=== PATIENT | male | born 1935 | race Caucasian/White ===

== ENCOUNTER 2017-03-01 12:58 | Inpatient (IN) | payer MEDICARE, BC ==
[2017-02-27 10:06] LABS: BASOPHILS 1.1 %; BASOPHILS ABSOLUTE 0.09 10/3/uL (0.0-0.16); EOSINOPHILS 3.4 %; EOSINOPHILS ABSOLUTE 0.27 10/3/uL (0.0-0.53); HEMATOCRIT 27.8 % (40.0-51.0); HEMOGLOBIN 8.7 g/dL (13.6-17.8); IMMATURE GRANULOCYTES 0.1 %; IMMATURE GRANULOCYTES ABSOLUTE 0.01 10/3/uL (0.0-0.11); LYMPHOCYTES 9.1 %; LYMPHOCYTES ABSOLUTE 0.72 10/3/uL (0.67-4.30); MEAN CORPUS HGB CONC 31.3 g/dL (32.0-36.0); MEAN CORPUSCULAR HEMOGLOB 28.8 pg (26.0-34.0); MEAN CORPUSCULAR VOLUME 92.1 fL (80-100); MEAN PLATELET VOLUME 9.1 fL (9.2-13.0); MONOCYTES 8.6 %; MONOCYTES ABSOLUTE 0.68 10/3/uL (0.21-1.20); NEUTROPHILS 77.7 %; PLATELET COUNT 235 10/3/uL (150-400); RBC DISTRIBUTION WIDTH 15.7 % (12.0-16.0); RED CELL COUNT 3.02 10/6/uL (4.7-6.1); WHITE BLOOD CELLS 7.9 10/3/uL (4.5-10.5)
[2017-02-27 10:07] LABS: MANUAL DIFF NO %
[~2017-03-01] VITALS: Ht 190.5 cm; Wt 98.5 kg
--- NOTE | ~2017-03-01 | HP ---
History And Physical [id number] [place]. [address] NAME: JAMES RO : 34 STATUS : ADM IN PAT#: [id number] AGE: 81 ADM/REG DATE : 03/01/17 MR#: [id number] REPORT SERV DATE: 03/03/17 DICTATED BY: TOM SUTTON DATE: 03/01/17 REPORT STATUS : Draft TRANSCRIBED BY: MODL DATE: 03/01/17 DATE OF ADMISSION: 03/01/2017 CHIEF COMPLAINT: Shortness of breath and fatigue. HISTORY OF PRESENT ILLNESS: This is an 81-year-old gentleman with history of coronary artery disease, systolic congestive heart failure with ejection fraction of 30%, hypertension, diabetes, atrial fibrillation, chronic kidney disease, who is on anticoagulation with Eliquis, presenting with shortness of breath and fatigue. The patient was actually here back in December with blood loss anemia secondary to GI bleed. At that time, patient required two units of packed red blood cells, and patient was eventually discharged home with hemoglobin level of 9.8. Patient since then has been resumed on his Eliquis. The patient also has had close followup with Dr. Méndez as an outpatient, and his hemoglobin was monitored frequently. The patient reports that when he was first discharged home, he was feeling great and he was able to do a lot of daily chores without difficulty but overtime, the patient has grown weaker and weaker and developed worsening dyspnea on exertion. Rather recently, the patient has had difficult time walking out to the mailbox and especially this morning, he was out of breath after walking just ten feet to his bathroom and back. The patient has been monitoring his bowel movements, and he has not noted any gross bleeding. However, the patient's outpatient hemoglobin has been trickling down from 9.8 down to 9 and most recently 8.7. Dr. Méndez was concerned and recommended the patient to go to the ER for further evaluation and care. In the ER, the patient was found to be afebrile and hemodynamically stable. Initial lab evaluation was actually all very benign. The patient's hemoglobin was 9.0 which is actually better than 8.7 that was performed a couple of days ago. Internal Medicine consultation was requested for admission of the patient for further evaluation and care. In reviewing pertinent past medical history, the patient was asked if he has gained some weight or has noticed any swelling, and the patient actually reported yes. The patient's chest x-ray also looks like he has quite a bit of vascular congestion. The patient reports having been adherent to his medical therapy and diet. REVIEW OF SYSTEMS: Patient denies any fevers or chills. Also, 14-point review of systems reviewed and negative other than mentioned above. MEDICATIONS: The patient's home medication list is still pending at this time. PAST MEDICAL HISTORY: 1. Coronary artery disease with CABG. 2. Systolic congestive heart failure with ejection fraction of 30%. 3. History of V-tach, status post AICD implantation. 4. Hypertension. 5. Diabetes type 2. 6. Chronic atrial fibrillation for which patient is on Eliquis. History And Physical [address] [address] NAME: JAMES RO : 34 STATUS : ADM IN [facility]#: [id number] AGE: 81 ADM/REG DATE : 03/01/17 MR#: [id number] REPORT SERV DATE: 03/03/17 DICTATED BY: TOM SUTTON DATE: 03/01/17 REPORT STATUS : Draft TRANSCRIBED BY: MAGI DATE: 03/01/17 7. Chronic kidney disease stage 3. 8. GERD. 9. History of C. difficile. PAST SURGICAL HISTORY: 1. CABG. 2. Pacemaker and AICD implantation. 3. Bilateral knee replacements. FAMILY HISTORY: Hypertension. SOCIAL HISTORY: The patient does not smoke, drink alcohol, or use any illicit drugs. The patient lives at home with his who is at bedside here in the ER. PHYSICAL EXAMINATION: VITAL SIGNS: Temperature 98.0, blood pressure 118/56, pulse 66, respiratory rate is 20, saturating 96% on room air. GENERAL: Patient is alert and oriented x3 with no focal neurologic deficits. Patient is awake, does not appear to be in acute distress, and he is cooperative. NECK: No JVD. No lymphadenopathy. Normal thyroid. CHEST: Midline sternotomy scar from the past. Otherwise, no tenderness to palpation. LUNGS: The patient has diminished breath sounds in the bilateral lung bases with some crackles. Otherwise, fairly normal respiratory effort on room air sitting up. CARDIOVASCULAR: Regular rate and rhythm with no murmurs, rubs, or gallops, and PMI is nondisplaced. ABDOMEN: Soft and nontender with active bowel sounds and no organomegaly. EXTREMITIES: The patient actually has diffuse anasarca and 3 to 4+ bilateral lower extremity edema into his thighs and hips. The patient otherwise has warm extremities with no calf tenderness. SKIN: Clean, dry, warm, and intact. LABORATORY DATA: Sodium is 142, potassium 4.0, chloride 109, BUN 28, creatinine 1.36, glucose 148, calcium 8.8. White blood cell count is 7.8, hemoglobin 9.0, platelets 253. INR is 1.7. LFTs within normal limits. BNP was 650.5. Urinalysis was negative. Chest x- ray is personally interpreted and shows vascular congestion with pleural effusions bilaterally. ASSESSMENT: This is an 81-year-old gentleman with history of systolic congestive heart failure presenting with a congestive heart failure exacerbation. 1. Systolic congestive heart failure exacerbation, baseline ejection fraction of 30%. 2. Anasarca. 3. Acute on chronic anemia, patient's hemoglobin is actually fairly stable, and I believe his symptoms are more from the congestive heart failure exacerbation than a symptomatic anemia. 4. Chronic atrial fibrillation, on Eliquis. 5. Chronic kidney disease, stage 3. 6. Hypertension. History And Physical [address] [address] NAME: JAMES RO : 34 STATUS : ADM IN [facility]#: [id number] AGE: 81 ADM/REG DATE : 03/01/17 MR#: [id number] REPORT SERV DATE: 03/03/17 DICTATED BY: TOM SUTTON DATE: 03/01/17 REPORT STATUS : Draft TRANSCRIBED BY: MODHazel DATE: 03/01/17 7. Diabetes type 2. 8. History of Clostridium difficile. 9. Gastroesophageal reflux disease. PLAN: My plan is to admit the patient as an inpatient under telemetry monitoring. The patient actually appears comfortable on room air. However, given the degree of anasarca, I feel the patient will need at least two full days of diuresis. The patient will be started on IV Lasix diuresis. Ins and outs as well as daily weights will be closely monitored. I will also closely monitor daily electrolytes and renal function as the patient is aggressively diuresed. I will also go ahead and check an echocardiogram. For the acute on chronic anemia, I will simply monitor his H and Hs. The patient was noted to have a Hemoccult-positive stool as an outpatient, and I will have a low threshold to ask Dr. Méndez to step in to help if the patient develops worsening anemia or any sort of gross GI bleeding. At that point in time, the patient's Eliquis will be also held. Otherwise, for the rest of stable past medical conditions including hypertension, diabetes, GERD, et al., I will continue home medications. Standard DVT prophylaxis. The patient is full code at this time. YSC/MODL Tom Sutton MD / [id number] CC: Chantel Vergara Dr.
--- NOTE | ~2017-03-01 | DS ---
Discharge Summary [address] [place]. [address] NAME: JAMES RO : 34 STATUS : DIS IN PAT#: [id number] AGE: 81 ADM/REG DATE : 03/01/17 MR#: [id number] REPORT SERV DATE: 03/07/17 DICTATED BY: JEFFERY ZHU DATE: 03/06/17 REPORT STATUS : Draft TRANSCRIBED BY: MODL DATE: 03/06/17 ADMISSION DATE: 03/01/2017 DISCHARGE DATE: 03/06/2017 DISCHARGE DIAGNOSES: 1. Acute on chronic systolic heart failure. 2. Ischemic cardiomyopathy with ejection fraction of 35%. 3. Anasarca. 4. Diabetes mellitus type 2 with complications. 5. Chronic atrial fibrillation. 6. Hypertension. 7. Chronic kidney disease, stage II to III. 8. Anemia. 9. History of coronary artery bypass graft with coronary artery disease. 10.History of recent gastrointestinal bleed. 11.History of ventricular tachycardia. 12.History of Clostridium difficile. 13.Gastroesophageal reflux disease. CONSULTATIONS: Cardiology, Dr. Warren. PROCEDURES AND IMAGIN. 03/01/2017, portable chest x-ray showed bibasilar atelectasis/consolidation, right greater than left with small bilateral pleural effusions, right greater than left. 2. Stable enlargement of cardiac silhouette with evidence of previous median sternotomy and AICD placement. HOSPITAL COURSE: Please see H and P dictated by Dr. Tom Sinha on 03/01/2017 for complete details regarding patient's admission. In brief, Dr. Sinha admitted the patient for shortness of breath and increase in fatigue. The patient had a previous admission in December with acute blood loss anemia secondary to GI bleed. The patient also has an extensive heart history. The patient's hemoglobin initially was 8.7, it has now increased to 9.4, and Dr. Méndez is aware and will be following up with the patient after discharge. On 03/04/2017, the patient was seen by Dr. Lorenzo for his acute on chronic heart failure. The patient has been extensively diuresed for his anasarca, and the patient's edema has decreased to 2+ pitting edema, bilateral mid singh. The patient has also had extensive teaching per the heart failure team and has been recommended for followup with home health for his CHF. The patient has diabetes mellitus type 2 with complications, and the patient's blood glucoses have remained stable during his admission. The patient has a history of chronic atrial fibrillation for which he is on apixaban and also has an AICD pacemaker. The patient will be following up with Dr. Warren on 03/20/2017. The patient's blood pressure has been under good control while he has been in the hospital and his lisinopril has been decreased by Dr. Warren. The patient has history CKD, stage II to III, which has progressively worsened with diuresis with current BUN of 43, creatinine of 1.81, and GFR of 39. The patient will be having followup labs in one week and seeing Dr. Bazan next week. The patient also has a history of possible vascular disease, and he will be seeing Dr. Bustamante today as a new patient Discharge Summary [address] [address] NAME: JAMES RO : 34 STATUS : DIS IN PAT#: [id number] AGE: 81 ADM/REG DATE : 03/01/17 MR#: [id number] REPORT SERV DATE: 03/07/17 DICTATED BY: JEFFERY ZHU DATE: 03/06/17 REPORT STATUS : Draft TRANSCRIBED BY: MAGI DATE: 03/06/17 on 03/12/2017. PHYSICAL EXAMINATION: VITAL SIGNS: Blood pressure is 114/57, O2 saturation is 98% on room air, temperature is 97.5, heart rate is 62, respirations are 18. HEENT: Head is atraumatic, normocephalic. Pupils are equal, round, reactive to light and accommodation. Sclerae are clear and nonicteric. NECK: Supple with no obvious thyromegaly or lymphadenopathy. Neck veins are flat and trachea is midline. CHEST: The patient has a pacemaker in left upper chest. LUNGS: Clear to auscultation with normal respiratory effort anteriorly and posteriorly. GI: Abdomen is soft and nontender with active bowel sounds in all four quadrants. No palpable organomegaly. Normal bowel habitus. EXTREMITIES: The patient has 2+ pitting edema to mid singh. Bilateral feet are warm and no cyanosis. The patient's toes are red and blanchable. MUSCULOSKELETAL: Moves all extremities x4. SKIN: Warm and dry with normal color and turgor. NEURO/PSYCH: The patient is alert and oriented x3, pleasant, cooperative. Cranial nerves 2 through 12 are grossly intact. The patient is eating well. DISCHARGE MEDICATIONS: Eliquis 2.5 mg twice daily; ascorbic acid 250 mg daily; aspirin 81 mg daily; atorvastatin 40 mg daily; Lasix 40 mg daily, start on 03/07/2017; vitamin D 1000 units daily; ferrous sulfate 325 mg twice daily; Uloric 40 mg daily; glipizide 10 mg with breakfast and supper; hydrocodone 5/325 mg tablets, one tablet at bedtime; Davenport 5/325 mg one table daily p.r.n.; specialty vitamins one tablet daily; Lopressor 25 mg p.o. twice daily, hold for systolic blood pressure less than or equal to 105 or heart rate less than or equal to 60; Protonix 40 mg daily; Prinivil 5 mg daily; Lamisil topically p.r.n. athlete's foot; albuterol two puffs daily p.r.n. shortness of breath; Culturelle 1 capsule daily; acetaminophen 650 mg daily p.r.n. pain, Refresh 1 drop p.r.n. twice daily in both eyes. ALLERGIES: THE PATIENT IS ALLERGIC TO PENICILLIN, LATEX, WHICH GIVES RASH AND BLISTERS. ADVERSE REACTION TO ALLOPURINOL, WHICH GETS URTICARIA; GABAPENTIN AND METFORMIN FOR WHICH HE GETS DIARRHEA. DISCHARGE INSTRUCTIONS: The patient is to follow up with Dr. Bazan next week as well as drawing his labs. The patient is to follow up with Dr. Warren on 03/20/2017, Dr. Mcdonald on 03/12/2017, and Dr. Méndez will be calling the patient to make a new appointment. If the patient develops any more increased shortness of breath, weakness, or extensive weight gain, he is to call his PCP, Dr. Warren, or to present to the ER. Approximately 40 minutes has been spent coordinating discharge care of this patient including [id number] encounter and summarization of discharge. SLC/MODL Discharge Summary [address] [address] NAME: JAMES RO : 34 STATUS : DIS IN [facility]#: [id number] AGE: 81 ADM/REG DATE : 03/01/17 MR#: [id number] REPORT SERV DATE: 03/07/17 DICTATED BY: JEFFERY ZHU DATE: 03/06/17 REPORT STATUS : Draft TRANSCRIBED BY: MAGI DATE: 03/06/17 Carmen Vinson, [employer] REPRESENTATIVE Jeffery Zhu M.D. / [id number] CC: MELISA Amin
--- NOTE | ~2017-03-01 | CN ---
Consultation Report [address] [place]. [address] NAME: JAMES SOLER : 34 STATUS : ADM IN PAT#: [id number] AGE: 81 ADM/REG DATE : 03/01/17 MR#: [id number] REPORT SERV DATE: 03/04/17 DICTATED BY: DIMAS WHEELER DATE: 03/04/17 REPORT STATUS : Draft TRANSCRIBED BY: MODL DATE: 03/04/17 CARDIOLOGY CONSULT DATE OF CONSULTATION: CONSULTATION REASON: Heart failure. HISTORY OF PRESENT ILLNESS: Mr. Soler is an 81-year-old male, now hospital day #4, after presenting with acute on chronic systolic heart failure. He has a known chronic ischemic cardiomyopathy and chronic systolic heart failure with an LVEF of 35%. He presented with symptoms of volume overload including shortness of breath and worsening lower extremity edema. He has been diuresed for the past several days and now feels much better. His edema is much improved. He denies having any chest pain or shortness of breath. He has had no palpitations or ICD shocks. REVIEW OF SYSTEMS: Pertinent positives and negatives are as outlined above, all other negative. PAST MEDICAL HISTORY: 1. CAD, status post CABG. 2. Ischemic cardiomyopathy, LVEF 35%. 3. Chronic systolic heart. 4. ICD in situ. 5. Atrial fibrillation. 6. Hypertension. 7. Hyperlipidemia. 8. Diabetes mellitus type 2. 9. CKD, stage 2/3. MEDICATIONS: His current home medications are, 1. Metoprolol 25 mg b.i.d. 2. Lisinopril 20 mg daily. 3. Lasix 40 mg daily. 4. Potassium supplementation. 5. Eliquis 5 mg twice daily. 6. Aspirin 81 mg daily. 7. Atorvastatin 40 mg q.h.s. 8. Uloric as directed. 9. Iron supplementation. 10.Glucotrol as directed. 11.Vitamin D supplementation. 12.Vitamin C supplementation. 13.Albuterol inhaler p.r.n. 14.Protonix 40 mg daily. Consultation Report [address] [place]. [address] NAME: JAMES SOLER : 34 STATUS : ADM IN PAT#: [id number] AGE: 81 ADM/REG DATE : 03/01/17 MR#: [id number] REPORT SERV DATE: 03/04/17 DICTATED BY: DIMAS WHEELER DATE: 03/04/17 REPORT STATUS : Draft TRANSCRIBED BY: MAGI DATE: 03/04/17 ALLERGIES: INCLUDE METFORMIN, WHICH CAUSES GI UPSET, GABAPENTIN CAUSES GI UPSET, ALLOPURINOL CAUSES A RASH, LATEX CAUSES A RASH, PENICILLIN CAUSES A RASH. SOCIAL HISTORY: He does not use tobacco products, consume alcohol, or use illegal drugs. FAMILY HISTORY: Significant for CAD. PHYSICAL EXAMINATION: VITALS: Temperature is afebrile, Pulse is 70, Respirations 16, blood pressure 114/55. GENERAL: Well-developed elderly male who is currently in no distress. HEENT: Sclerae anicteric, mucous membranes moist and without lesions. NECK: No jugular venous distention. No hepatojugular reflux, carotid upstrokes 2+ and symmetric, there are no carotid or subclavian bruit. LUNGS: Mildly decreased breath sounds throughout with no wheezes or crackles. CARDIOVASCULAR: Irregular with soft S1 and normal S2. No audible S3. There is a 2/6 holosystolic murmur at the apex without radiation. No parasternal lift. PMI is not palpable. ABDOMEN: Soft and nontender. Bowel sounds positive and normoactive. No hepatomegaly, no masses, no abdominal bruit. PULSES: Radial and dorsalis pedis pulses 1+ and symmetric. EXTREMITIES: Warm with 2+ pitting edema to the midtibia bilaterally. SKIN: No clubbing or cyanosis, no rashes or lesions. ACCESSORY DATA: Echocardiogram obtained this admission revealed an LVEF of 35%, stable from prior exams, with mild-moderate mitral regurgitation. ICD in situ noted. IMPRESSION: 1. Acute on chronic systolic heart failure. 2. CAD, status post CABG. 3. Ischemic cardiomyopathy, EF 35%. 4. ICD. 5. Atrial fibrillation. 6. Hypertension. 7. Hyperlipidemia. 8. Diabetes mellitus type 2. 9. Chronic kidney disease. PLAN: Mr. Soler is doing much better on the Hospitalist Service after diuresis. Heart rate and blood pressure control. He is on chronic beta-juani and KYUNG inhibitor therapy. Continue diuresis as planned and change to oral diuretic as he approaches euvolemia or when creatinine increases. No aldosterone antagonist recommended with diabetes and chronic kidney disease. No new recommendation at this time. Consultation Report [id number] [place] [address] NAME: JAMES SOLER : 34 STATUS : ADM IN PAT#: [id number] AGE: 81 ADM/REG DATE : 03/01/17 MR#: [id number] REPORT SERV DATE: 03/04/17 DICTATED BY: DIMAS WHEELER. DATE: 03/04/17 REPORT STATUS : Draft TRANSCRIBED BY: MAGI DATE: 03/04/17 GOLDYA/MAGI Dimas Wheeler M.D. / [id number] CC: Pilar Osorio M.D.
[~2017-03-01 12:58] MED LIST: C5 PO; CLARIT10 PO; CULTURELLE1 EACH PO; ELIQUIS 5 MG TAB5 MG PO; FERROUS SULF325 M1 PO; GLUCOPHAGE1000 MG PO; GLUCOSE TAB PO; GLUCOTRO10 PO; GLUCPH PO; HALF81 PO; HCTZ25B PO; ICAPS AREDS SO1 EACH PO; INSNOVN SC; IRON325 MG PO; KDUR10 PO; KLOR-CON 1010 MEQ PO; L40 PO; LAMIS15 TOP; LIPITOR40 PO; LOP25 PO; MEVACOR PO; NORCO1 TA1 PO; OCEAN NAS; PRAVACHOL40 MG PO; PRILO PO; PRIN20 PO; PROAIR HFA INH; PROTONIX PO; PROVHFA INH; REQUIP1 PO; ULORIC PO; ULORIC40 MG PO; VICODINTAB PO; VITAMIN C 250 MG PO; VITAMIN C100 MG PO; VITAMIN D1000 UNI1 PO; VITAMIN D31000 UNIT PO; VITC500 PO
[2017-03-01 13:33] LABS: BASOPHILS 1.3 %; EOSINOPHILS 3.7 %; EOSINOPHILS ABSOLUTE 0.29 10/3/uL (0.0-0.53); ER CBC TAT 0 Hrs 05 Mins; HEMATOCRIT 28.3 % (40.0-51.0); IMMATURE GRANULOCYTES 0.3 %; IMMATURE GRANULOCYTES ABSOLUTE 0.02 10/3/uL (0.0-0.11); LYMPHOCYTES 9.6 %; LYMPHOCYTES ABSOLUTE 0.75 10/3/uL (0.67-4.30); MANUAL DIFF NO %; MEAN CORPUS HGB CONC 31.8 g/dL (32.0-36.0); MEAN CORPUSCULAR HEMOGLOB 29.3 pg (26.0-34.0); MEAN CORPUSCULAR VOLUME 92.2 fL (80-100); MONOCYTES 8.1 %; MONOCYTES ABSOLUTE 0.63 10/3/uL (0.21-1.20); NEUTROPHILS ABSOLUTE 5.99 10/3/uL (2.02-8.40); PLATELET COUNT 253 10/3/uL (150-400); RBC DISTRIBUTION WIDTH 15.8 % (12.0-16.0); RED CELL COUNT 3.07 10/6/uL (4.7-6.1); WHITE BLOOD CELLS 7.8 10/3/uL (4.5-10.5)
[2017-03-01 13:39] LABS: INTERNATIONAL NORMAL RATI 1.7 UNITS (-); PARTIAL THROMBO TIME 34.7 SEC (22.5-37.2); PROTIME (NOT ORD) 19.5 SEC (12.0-14.5)
[2017-03-01 13:46] LABS: A/G RATIO 1.1 (0.7-1.9); ALBUMIN 3.2 G/DL (3.5-5.0); ALKALINE PHOSPHATASE 73 U/L (45-117); BUN (BLOOD UREA NITROGEN) 28 MG/DL (6-23); CALCIUM, SERUM 8.8 MG/DL (8.5-10.4); CHLORIDE, SERUM 109 MMOL/L (96-112); CO2 (CARBON DIOXIDE) 26 MMOL/L (24-34); CREATININE 1.36 MG/DL (0.70-1.30); GFR AFRICAN AMERICAN 56 ML/MIN (>=60); GFR NON AFRICAN AMERICAN 48 ML/MIN (>=60); GLOBULIN 2.9 G/DL (2.5-4.1); GLUCOSE, SERUM 148 MG/DL (60-99); SGOT(AST) 13 U/L (5-40); SGPT(ALT) 16 U/L (5-65); SODIUM, SERUM 142 MMOL/L (135-148); TOTAL BILIRUBIN 0.3 MG/DL (0-1.2); TOTAL PROTEIN 6.1 G/DL (6.0-8.5)
[2017-03-01 16:53] LABS: ASCORBIC ACID (UR NOT ORDER) 40 (NEG); BILIRUBIN, URINE NEGATIVE (NEG); ER URINALYSIS TAT 0 Hrs 12 Mins; KETONE, URINE NEGATIVE (NEG); LEUKOCYTE ESTERASE(NOT OR NEG (NEG); NITRITE (URINE) NEG (NEG); WBC (NOT ORDERED) (RFLEX) 2 (0-5)
[2017-03-01] MEDS ORDERED: FERROUS SULF325 M1 PO (18:30)
[2017-03-01] MEDS ORDERED: GLUCOTRO10 PO (18:31)
[2017-03-01] MEDS ORDERED: L40 PO (18:31)
[2017-03-01] MEDS ORDERED: ICAPS LUTEIN PO (18:32)
[2017-03-01] MEDS ORDERED: KLOR-CON 1010 MEQ PO (18:32)
[2017-03-01] MEDS ORDERED: ELIQUIS 5 MG TAB5 MG PO (18:33)
[2017-03-01] MEDS ORDERED: PRIN20 PO (18:33)
[2017-03-01] MEDS ORDERED: VITAMIN C100 MG PO (18:34)
[2017-03-01] MEDS ORDERED: NORCO1 TA1 PO ×2 (18:34)
[2017-03-01] MEDS ORDERED: LIPITOR40 PO (18:35)
[2017-03-01] MEDS ORDERED: LOP25 PO (18:35)
[2017-03-01] MEDS ORDERED: HALF81 PO (18:35)
[2017-03-01] MEDS ORDERED: ULORIC40 MG PO (18:36)
[2017-03-01] MEDS ORDERED: VITAMIN D31000 UNIT PO (18:36)
[2017-03-01] MEDS ORDERED: PROTONIX PO (18:37)
[2017-03-01] MEDS ORDERED: LAMIS15 TOP (18:37)
[2017-03-01] MEDS ORDERED: PROVHFA INH (18:38)
[2017-03-01] MEDS ORDERED: CULTURELLE1 EACH PO (18:38)
[2017-03-01] MEDS ORDERED: T PO (18:39)
[2017-03-01] MEDS ORDERED: REFRESH OPH (18:39)
[2017-03-01 23:31] LABS: FERRITIN 85 NG/ML (26-388); IRON, SERUM 40 MCG/DL (35-150)
[2017-03-01 23:32] LABS: FOLATE 11.6 NG/ML (>5.2)
[2017-03-02 04:50] LABS: BASOPHILS 0.9 %; EOSINOPHILS 3.4 %; EOSINOPHILS ABSOLUTE 0.36 10/3/uL (0.0-0.53); HEMATOCRIT 27.9 % (40.0-51.0); HEMOGLOBIN 8.7 g/dL (13.6-17.8); IMMATURE GRANULOCYTES 0.3 %; IMMATURE GRANULOCYTES ABSOLUTE 0.03 10/3/uL (0.0-0.11); LYMPHOCYTES ABSOLUTE 1.05 10/3/uL (0.67-4.30); MEAN CORPUS HGB CONC 31.2 g/dL (32.0-36.0); MEAN CORPUSCULAR HEMOGLOB 28.4 pg (26.0-34.0); MEAN CORPUSCULAR VOLUME 91.2 fL (80-100); MEAN PLATELET VOLUME 9.1 fL (9.2-13.0); MONOCYTES 10.1 %; MONOCYTES ABSOLUTE 1.07 10/3/uL (0.21-1.20); NEUTROPHILS 75.3 %; NEUTROPHILS ABSOLUTE 7.94 10/3/uL (2.02-8.40); PLATELET COUNT 249 10/3/uL (150-400); RBC DISTRIBUTION WIDTH 15.9 % (12.0-16.0); RED CELL COUNT 3.06 10/6/uL (4.7-6.1); WHITE BLOOD CELLS 10.6 10/3/uL (4.5-10.5)
[2017-03-02 04:51] LABS: MANUAL DIFF NO %
[2017-03-02 05:02] LABS: BUN (BLOOD UREA NITROGEN) 28 MG/DL (6-23); CALCIUM, SERUM 8.7 MG/DL (8.5-10.4); CHLORIDE, SERUM 111 MMOL/L (96-112); CO2 (CARBON DIOXIDE) 26 MMOL/L (24-34); GFR AFRICAN AMERICAN 59 ML/MIN (>=60); GFR NON AFRICAN AMERICAN 51 ML/MIN (>=60); GLUCOSE, SERUM 132 MG/DL (60-99); POTASSIUM, SERUM 3.9 MMOL/L (3.5-5.3); SODIUM, SERUM 146 MMOL/L (135-148)
[2017-03-03 05:49] LABS: BASOPHILS 1.3 %; BASOPHILS ABSOLUTE 0.12 10/3/uL (0.0-0.16); EOSINOPHILS 4.9 %; EOSINOPHILS ABSOLUTE 0.44 10/3/uL (0.0-0.53); HEMATOCRIT 28.8 % (40.0-51.0); HEMOGLOBIN 9.1 g/dL (13.6-17.8); IMMATURE GRANULOCYTES 0.2 %; IMMATURE GRANULOCYTES ABSOLUTE 0.02 10/3/uL (0.0-0.11); LYMPHOCYTES 11.4 %; LYMPHOCYTES ABSOLUTE 1.02 10/3/uL (0.67-4.30); MEAN CORPUS HGB CONC 31.6 g/dL (32.0-36.0); MEAN CORPUSCULAR VOLUME 91.7 fL (80-100); MEAN PLATELET VOLUME 9.2 fL (9.2-13.0); MONOCYTES 11.4 %; MONOCYTES ABSOLUTE 1.02 10/3/uL (0.21-1.20); NEUTROPHILS 70.8 %; NEUTROPHILS ABSOLUTE 6.35 10/3/uL (2.02-8.40); PLATELET COUNT 255 10/3/uL (150-400); RED CELL COUNT 3.14 10/6/uL (4.7-6.1)
[2017-03-03 05:53] LABS: MANUAL DIFF NO %
[2017-03-03 06:03] LABS: ALBUMIN 3.1 G/DL (3.5-5.0); BUN (BLOOD UREA NITROGEN) 26 MG/DL (6-23); CALCIUM, SERUM 9.2 MG/DL (8.5-10.4); CHLORIDE, SERUM 109 MMOL/L (96-112); CO2 (CARBON DIOXIDE) 28 MMOL/L (24-34); CREATININE 1.34 MG/DL (0.70-1.30); GFR AFRICAN AMERICAN 57 ML/MIN (>=60); GFR NON AFRICAN AMERICAN 49 ML/MIN (>=60); GLUCOSE, SERUM 116 MG/DL (60-99); PHOSPHORUS, SERUM 3.7 MG/DL (2.5-4.5); POTASSIUM, SERUM 4.7 MMOL/L (3.5-5.3); SODIUM, SERUM 145 MMOL/L (135-148)
[2017-03-04 03:57] LABS: BASOPHILS 1.6 %; BASOPHILS ABSOLUTE 0.13 10/3/uL (0.0-0.16); EOSINOPHILS 7.2 %; EOSINOPHILS ABSOLUTE 0.59 10/3/uL (0.0-0.53); HEMATOCRIT 28.2 % (40.0-51.0); IMMATURE GRANULOCYTES 0.1 %; IMMATURE GRANULOCYTES ABSOLUTE 0.01 10/3/uL (0.0-0.11); LYMPHOCYTES 11.1 %; LYMPHOCYTES ABSOLUTE 0.91 10/3/uL (0.67-4.30); MEAN CORPUS HGB CONC 31.9 g/dL (32.0-36.0); MEAN PLATELET VOLUME 9.3 fL (9.2-13.0); MONOCYTES 14.9 %; MONOCYTES ABSOLUTE 1.22 10/3/uL (0.21-1.20); NEUTROPHILS 65.1 %; NEUTROPHILS ABSOLUTE 5.35 10/3/uL (2.02-8.40); PLATELET COUNT 262 10/3/uL (150-400); RBC DISTRIBUTION WIDTH 15.9 % (12.0-16.0); WHITE BLOOD CELLS 8.2 10/3/uL (4.5-10.5)
[2017-03-04 03:59] LABS: MANUAL DIFF NO %
[2017-03-04 04:10] LABS: ALBUMIN 2.9 G/DL (3.5-5.0); BUN (BLOOD UREA NITROGEN) 31 MG/DL (6-23); CALCIUM, SERUM 9.1 MG/DL (8.5-10.4); CHLORIDE, SERUM 106 MMOL/L (96-112); CO2 (CARBON DIOXIDE) 28 MMOL/L (24-34); CREATININE 1.55 MG/DL (0.70-1.30); GFR AFRICAN AMERICAN 48 ML/MIN (>=60); GFR NON AFRICAN AMERICAN 41 ML/MIN (>=60); GLUCOSE, SERUM 125 MG/DL (60-99); PHOSPHORUS, SERUM 3.5 MG/DL (2.5-4.5); POTASSIUM, SERUM 4.4 MMOL/L (3.5-5.3); SODIUM, SERUM 139 MMOL/L (135-148)
[2017-03-05 04:52] LABS: BASOPHILS 1.7 %; BASOPHILS ABSOLUTE 0.15 10/3/uL (0.0-0.16); EOSINOPHILS 6.5 %; EOSINOPHILS ABSOLUTE 0.56 10/3/uL (0.0-0.53); HEMATOCRIT 30.5 % (40.0-51.0); HEMOGLOBIN 9.6 g/dL (13.6-17.8); IMMATURE GRANULOCYTES 0.2 %; IMMATURE GRANULOCYTES ABSOLUTE 0.02 10/3/uL (0.0-0.11); LYMPHOCYTES 16.9 %; LYMPHOCYTES ABSOLUTE 1.46 10/3/uL (0.67-4.30); MANUAL DIFF NO %; MEAN CORPUS HGB CONC 31.5 g/dL (32.0-36.0); MEAN CORPUSCULAR HEMOGLOB 28.7 pg (26.0-34.0); MEAN CORPUSCULAR VOLUME 91.3 fL (80-100); MEAN PLATELET VOLUME 9.3 fL (9.2-13.0); MONOCYTES 10.7 %; MONOCYTES ABSOLUTE 0.92 10/3/uL (0.21-1.20); NEUTROPHILS ABSOLUTE 5.51 10/3/uL (2.02-8.40); PLATELET COUNT 278 10/3/uL (150-400); RBC DISTRIBUTION WIDTH 15.7 % (12.0-16.0); RED CELL COUNT 3.34 10/6/uL (4.7-6.1); WHITE BLOOD CELLS 8.6 10/3/uL (4.5-10.5)
[2017-03-05 05:05] LABS: ALBUMIN 3.2 G/DL (3.5-5.0); BUN (BLOOD UREA NITROGEN) 38 MG/DL (6-23); CHLORIDE, SERUM 105 MMOL/L (96-112); CO2 (CARBON DIOXIDE) 28 MMOL/L (24-34); CREATININE 1.71 MG/DL (0.70-1.30); GFR AFRICAN AMERICAN 42 ML/MIN (>=60); GFR NON AFRICAN AMERICAN 36 ML/MIN (>=60); GLUCOSE, SERUM 108 MG/DL (60-99); PHOSPHORUS, SERUM 3.6 MG/DL (2.5-4.5); POTASSIUM, SERUM 4.3 MMOL/L (3.5-5.3); SODIUM, SERUM 139 MMOL/L (135-148)
[2017-03-06 03:17] LABS: BASOPHILS ABSOLUTE 0.08 10/3/uL (0.0-0.16); EOSINOPHILS 6.7 %; EOSINOPHILS ABSOLUTE 0.55 10/3/uL (0.0-0.53); HEMATOCRIT 29.9 % (40.0-51.0); HEMOGLOBIN 9.4 g/dL (13.6-17.8); IMMATURE GRANULOCYTES 0.2 %; IMMATURE GRANULOCYTES ABSOLUTE 0.02 10/3/uL (0.0-0.11); LYMPHOCYTES 15.5 %; LYMPHOCYTES ABSOLUTE 1.27 10/3/uL (0.67-4.30); MEAN CORPUS HGB CONC 31.4 g/dL (32.0-36.0); MEAN CORPUSCULAR HEMOGLOB 28.6 pg (26.0-34.0); MEAN CORPUSCULAR VOLUME 90.9 fL (80-100); MEAN PLATELET VOLUME 9.2 fL (9.2-13.0); MONOCYTES 11.1 %; MONOCYTES ABSOLUTE 0.91 10/3/uL (0.21-1.20); NEUTROPHILS 65.5 %; NEUTROPHILS ABSOLUTE 5.37 10/3/uL (2.02-8.40); PLATELET COUNT 284 10/3/uL (150-400); RBC DISTRIBUTION WIDTH 15.4 % (12.0-16.0); RED CELL COUNT 3.29 10/6/uL (4.7-6.1); WHITE BLOOD CELLS 8.2 10/3/uL (4.5-10.5)
[2017-03-06 03:22] LABS: MANUAL DIFF NO %
[2017-03-06 03:39] LABS: BUN (BLOOD UREA NITROGEN) 43 MG/DL (6-23); CALCIUM, SERUM 9.1 MG/DL (8.5-10.4); CHLORIDE, SERUM 105 MMOL/L (96-112); CO2 (CARBON DIOXIDE) 30 MMOL/L (24-34); CREATININE 1.81 MG/DL (0.70-1.30); GFR AFRICAN AMERICAN 39 ML/MIN (>=60); GFR NON AFRICAN AMERICAN 34 ML/MIN (>=60); GLUCOSE, SERUM 123 MG/DL (60-99); SODIUM, SERUM 142 MMOL/L (135-148)
[2017-03-06] MEDS ORDERED: PRIN5 PO (12:52)
== END 2017-03-06 16:37 | disposition home or self-care (01) | DRG 291 ==
LOC: ENRESERVTM → ENRESERV → ENRESERVDT → ER 12:58 → CDU1 18:26
PROVIDERS: Emergency Medicine; Internal Medicine; Internal Medicine Gastroenterology; Nurse Practitioner Family
DX: I13.0 Hypertensive heart and chronic kidney disease with heart failure and stage 1 through stage 4 chronic kidney disease, or unspecified chronic kidney disease (principal); I50.23 Acute on chronic systolic (congestive) heart failure; J96.01 Acute respiratory failure with hypoxia; J98.11 Atelectasis; N18.3 Chronic kidney disease, stage 3 (moderate); E11.22 Type 2 diabetes mellitus with diabetic chronic kidney disease; I25.5 Ischemic cardiomyopathy; I48.2 Chronic atrial fibrillation; E11.65 Type 2 diabetes mellitus with hyperglycemia; D63.8 Anemia in other chronic diseases classified elsewhere; K21.9 Gastro-esophageal reflux disease without esophagitis; E78.5 Hyperlipidemia, unspecified; I25.10 Atherosclerotic heart disease of native coronary artery without angina pectoris; Z79.01 Long term (current) use of anticoagulants; Z79.84 Long term (current) use of oral hypoglycemic drugs; Z79.82 Long term (current) use of aspirin; Z79.899 Other long term (current) drug therapy; Z95.1 Presence of aortocoronary bypass graft; Z95.810 Presence of automatic (implantable) cardiac defibrillator; Z88.8 Allergy status to other drugs, medicaments and biological substances; Z88.0 Allergy status to penicillin; Z91.040 Latex allergy status; Z96.653 Presence of artificial knee joint, bilateral
CPT/HCPCS: 36415; 71010; 80048; 80053; 80069; 81001; 82607; 82728; 82746; 82962; 83540; 83735; 83880; 84132; 84443; 85025; 85610; 85730; 86850; 86900; 86901; 93005; 97161-GP; 99285; A9270-GY; C8929; G8978-CK-GP; G8979-CI-GP; Q9957